=== PATIENT | male | born 1995 | race African-American/Black ===

== ENCOUNTER 2021-03-04 13:59 | Emergency (ER) | payer SELFPAY ==
[2021-03-04 14:12] VITALS: BP 107/56; PULSE 53; RESP 16; TEMP 36; O2SAT 100
--- NOTE | 2021-03-04 14:54 | ED.MALEGU ---
HPI - Male Genitourinary General Chief complaint: Urogenital-Male Stated complaint: STD Time Seen by Provider: 03/04/21 14:48 Source: patient and RN notes reviewed Mode of arrival: ambulatory Limitations: no limitations History of Present Illness HPI Narrative: Patient presents today requesting testing for chlamydia. His girlfriend tested positive approximately 3 days ago. Patient denies any symptoms to include dysuria, penile discharge, penile pain, scrotal or testicular pain. His girlfriend has been treated. MD Complaint: possible STD exposure Related Data Allergies Allergy/AdvReac Type Severity Reaction Status Date / Time No Known Allergies Allergy Verified 03/04/21 14:57 Review of Systems Review of Systems: Narrative: CONSTITUTIONAL: Denies body aches, fever, chills, or sweats. EYES: Denies visual changes, redness, or discharge. ENT: Denies rhinorrhea, congestion, sore throat, or otalgia. CARDIOVASCULAR: Denies chest pain, palpitations, or edema. RESPIRATORY: Denies cough or dyspnea. GASTROINTESTINAL: Denies abdominal pain, nausea, vomiting, or diarrhea. GENITOURINARY: Denies dysuria or hematuria. SKIN: Denies rash, itching, or wounds. MUSCULOSKELETAL: Denies back pain, joint pain, or myalgia. NEUROLOGIC: Denies headache, numbness, tingling, or weakness. PSYCH: Denies depression or anxiety. PMFSH Comments At time of signature, I have reviewed and agree with nursing past medical, surgical, social and family history unless otherwise noted. Please see nursing chart for further information. There is no relevant family history pertinent to the presenting complaint Exam Narrative: Exam Narrative: GENERAL: Well-appearing, well-nourished, and in no acute distress. HEAD: Normocephalic, atraumatic. EYES: EOMI. No redness or drainage. Conjunctivae normal. ENT: Mucous membranes pink and moist. NECK: Normal AROM. CHEST: No respiratory distress. : deferred MUSCULOSKELETAL: No bony tenderness. EXTREMITIES: Normal range of motion. No edema. SKIN: Warm, dry, no rash. Capillary refill normal. Normal skin turgor. NEURO: No focal deficits. Alert and oriented x3. Gait steady. PSYCH: Normal affect. No signs of depression or anxiety. Course Vital Signs Vital signs: Vital Signs Temperature 96.8 F L 03/04/21 14:12 Pulse Rate 53 L 03/04/21 14:12 Respiratory Rate 16 03/04/21 14:12 Blood Pressure 107/56 L 03/04/21 14:12 Pulse Oximetry 100 03/04/21 14:12 Temperature 96.8 F L 03/04/21 14:12 Pulse Rate 53 L 03/04/21 14:12 Respiratory Rate 16 03/04/21 14:12 Blood Pressure 107/56 L 03/04/21 14:12 Pulse Oximetry 100 03/04/21 14:12 Reviewed MDM - Male Genitourinary Differential Diagnosis Differential diagnosis: Likely other (Gonorrhea, chlamydia) Lab Data Labs: Lab Results 03/04/21 Range/Units 14:57 C.trachomatis RNA (TMA) Pending N.gonorrhoeae RNA (TMA) Pending Critical Care Time Critical Care Time Critical Care Time: No Discharge Plan Discharge Clinical Impression: Contact with and (suspected) exposure to infections with a predominantly sexual mode of transmission Patient Disposition: Home, Self-Care Condition: Stable Instructions: Antibiotic Form, Chlamydia (ED) Additional Instructions: Your urinalysis sample at [facility] today was negative for a infection. Your urine sample has been sent off to test for gonorrhea and chlamydia infections. These tests can take up to 5-7 days to come back. You will be notified by telephone if any of your tests come back positive. You have been treated with Rocephin in urgent care today to cover you for gonorrhea. Return for doxycycline has been sent to the pharmacy to cover you for chlamydia. If any of your test come back positive you should need no further treatment. If any of your test come back positive, you will need to notify any partners that you have, and they will need to be tested and treated. If your te
[2021-03-04] MEDS: LIDOCAINE HCL 1% LOCAL INJ 20 ML VIAL IM (15:01)
[2021-03-04] MEDS: cefTRIAXone 250 MG VIAL 500 MG IM (15:01)
== END 2021-03-04 15:15 | disposition home or self-care (01) ==
PROVIDERS: Emergency Provider Nurse Practitioner
DX: Z20.2 Contact with and (suspected) exposure to infections with a predominantly sexual mode of transmission (principal)
CPT/HCPCS: 87491; 87591; 96372; 99203; G0463; J0696

== ENCOUNTER 2021-05-15 11:00 | Emergency (ER) | payer OTHER, SELFPAY ==
[2021-05-15 11:16] VITALS: BP 90/59; PULSE 98; RESP 18; TEMP 36.7; O2SAT 100
--- NOTE | 2021-05-15 12:32 | ED.GENADULT ---
HPI - General Adult General Chief complaint: Back Pain/Injury Stated complaint: Shoulder Pain Time Seen by Provider: 05/15/21 12:32 Source: patient, RN notes reviewed and old records reviewed Mode of arrival: ambulatory Limitations: no limitations History of Present Illness HPI narrative: 25 year old male presents to [facility] care with complaints of back to his right upper back and at the right lateral neck and right shoulder area. Patient states that his pain started about a week ago denies any known injury. He reports that when he has his arms on steering whell it feels like something pulling on his right arm. 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 He is right hand dominant. MD complaint: right upper back lateral neck and shoulder area Onset (ago): week(s) (1) Related Data Allergies Allergy/AdvReac Type Severity Reaction Status Date / Time No Known Allergies Allergy Verified 03/04/21 14:57 Review of Systems Review of Systems: CONSTITUTIONAL: Denies fever, chills, or sweats. EYES: Denies visual changes, redness, or discharge. ENT: Denies rhinorrhea, congestion, sore throat, or otalgia. CARDIOVASCULAR: Denies chest pain, palpitations, or edema. RESPIRATORY: Denies cough or dyspnea. GASTROINTESTINAL: Denies abdominal pain, nausea, vomiting, or diarrhea. GENITOURINARY: Denies dysuria or hematuria. SKIN: Denies rash or itching. MUSCULOSKELETAL: Positive for pain to right upper back right lateral neck and shoulder area, or myalgia. NEUROLOGIC: Denies headache, numbness, or weakness. PSYCHIATRIC: Denies anxiety or depression. All systems reviewed & are unremarkable except as noted in HPI and below PMFSH Past Medical History Medical History (Updated 05/17/21 @ 13:55 by Magda Rivera NP) Heart murmur Surgical History Surgical History (Updated 05/17/21 @ 13:56 by Magda Rivera NP) No history of previous surgery Family History Family History (Updated 05/17/21 @ 13:56 by Magda Rivera NP) Father Diabetes mellitus Mother Diabetes mellitus Hypertension Social History Social History (Updated 05/17/21 @ 13:57 by Magda Rivera NP) Smoking status: Never smoker Alcohol intake: current Alcohol use details: social Substance use: current Substance use type: marijuana Living arrangements: with family Gender identity (if verbalized by the patient): Male Comments At time of signature, agree with nursing past medical, surgical, social and family history. There is no relevant family history pertinent to the presenting complaint Exam Narrative: GENERAL: Well-appearing, well-nourished, and in no acute distress. HEAD: Normocephalic, atraumatic. EYES: PERRLA and EOMI. ENT: Nares clear, no rhinorrhea or epistaxis. Mucous membranes moist.TM's normal with good lght reflex, throat pink with no lesions or exudates, no tonsil enlagrement NECK: Supple. no lymphadenopathy CHEST: Clear to auscultation. No respiratory distress.SAO2 100% on room air HEART: Regular rate and rhythm. No murmur heard. Normal peripheral pulses. ABDOMEN: Soft, nontender, nondistended, normal active bowel sounds. EXTREMITIES: Normal range of motion. No edema.Pain to right upper back lateral neck and to right shoulder area with full ROM of neck and right shoulder noted, equal strength to bilateral upper extremities, strong hand optometric assistant bilaterally, no tingling or numbness to either hand with strong pulses to right arm noted. SKIN: Warm, dry, no rash. NEURO: No focal deficits. Alert and oriented x3. Course Vital Signs Vital signs: Vital Signs Temperature 36.7 C 05/15/21 11:16 Pulse Rate 98 05/15/21 11:16 Respiratory Rate 18 05/15/21 11:16 Blood Pressure 90/59 L 05/15/21 11:16 Pulse Oximetry 100 05/15/21 11:16 Temperature 36.7 C 05/15/21 11:16 Pulse Rate 98 05/15/21 11:16 Respiratory Rate 18 05/15/21 11:16 Blood Pressure 90/59 L 04/27
== END 2021-05-15 12:55 | disposition home or self-care (01) ==
PROVIDERS: Emergency Provider Registered Nurse
DX: S29.012A Strain of muscle and tendon of back wall of thorax, initial encounter (principal); X58.XXXA Exposure to other specified factors, initial encounter
CPT/HCPCS: 99213; G0463